=== PATIENT | male | born 1950 | race Two or more races ===

== ENCOUNTER 2017-10-15 20:29 | Inpatient (IN) | payer OTHER ==
[~2017-10-15] VITALS: Ht 167.6 cm; Wt 102.9 kg
[2017-10-15] MEDS ORDERED: IBUPROFEN 600 MG TAB PO ONE (21:00)
[2017-10-15] MEDS ORDERED: ACETAMINOPHEN 500 MG TAB PO ONE (21:00)
[2017-10-15 21:51] LABS: Basophils # (auto) 0.1 uL; Basophils % (auto) 0.4 % (0.0-2.0); Eosinophils # (auto) 0 uL; Eosinophils % (auto) 0.2 % (0.0-7.0); Hematocrit 44.3 % (41.0-53.0); Hemoglobin 15.1 g/dL (13.5-17.5); Lymphocytes # (auto) 0.4 uL; Mean Corpuscular Hemoglobin 30.9 pg (28.0-32.0); Mean Corpuscular Hgb Conc. 34.2 g/dL (32.0-36.0); Mean Corpuscular Volume 90.3 fL (80.0-100.0); Monocytes # (auto) 0.8 uL; Monocytes % (auto) 6.4 % (0.0-12.0); Neutrophils # (auto) 11.8 uL; Platelet Count (auto) 260 10^3/uL (140-450); Red Cell Distribution Width 13.1 % (11.8-14.3); White Blood Cell 13.1 10^3/uL (4.4-10.8)
[2017-10-15 22:08] LABS: Alanine Aminotransferase 23 U/L (16-61); Albumin 3.6 g/dL (3.4-5.0); Anion Gap 8 (5-15); Aspartate Aminotransferase 19 U/L (15-37); Blood Urea Nitrogen 18 mg/dL (7-18); Calcium 8.9 mg/dL (8.5-10.1); Carbon Dioxide 25 mmol/L (21-32); Chloride 103 mmol/L (98-107); GFR African American 66 mL/min; GFR Non-African American 54 mL/min; Glucose 179 mg/dL (74-106); INR 0.96 (0.9-1.15); Partial Thromboplastin Time 24.3 sec (22.64-33.71); Potassium 3.7 mmol/L (3.5-5.1); Prothrombin Time 10.5 sec (9.37-12.3); Sodium 136 mmol/L (136-145)
[2017-10-15 22:13] LABS: Alkaline Phosphatase 82 U/L (45-117); Bilirubin, Total 0.4 mg/dL (0.2-1.0); Total Protein 7.5 g/dL (6.4-8.2)
[2017-10-16] VITALS (7 sets, daily range): BP systolic 129–154; BP diastolic 74–103
[2017-10-16] MEDS ORDERED: SODIUM CHLORIDE 0.9% 1,000 ML IV ONE (01:00)
[2017-10-16 01:25] LABS: Urine Bacteria NONE SEEN /hpf (None Seen); Urine Blood Negative /uL (Negative); Urine Hyaline Cast FEW /lpf (0 - 2); Urine Mucus FEW (None Seen); Urine Specific Gravity 1.025 (1.001-1.035); Urine WBC 14 /hpf (0 - 3)
[2017-10-16] MEDS ORDERED: metroNIDAZOLE 500MG/100ML 100 ML IV ONE (03:30)
[2017-10-16] MEDS ORDERED: cefTRIAXone 1GM/10ml IVPUSH 10 ML IV ONE (03:30)
[2017-10-16] MEDS ORDERED: HYDROcodone-ACET 5/325MG TAB PO PRN (05:30)
[2017-10-16] MEDS ORDERED: ONDANSETRON HCL 4 MG/2 ML VIAL IV PRN (05:30)
[2017-10-16] MEDS ORDERED: SODIUM CHLORIDE 0.9% 1,000 ML IV SCH (05:30)
[2017-10-16 06:33] LABS: Basophils # (auto) 0.2 uL; Basophils % (auto) 1.5 % (0.0-2.0); Eosinophils # (auto) 0.1 uL; Eosinophils % (auto) 0.7 % (0.0-7.0); Hemoglobin 13.6 g/dL (13.5-17.5); Lymphocytes # (auto) 1.3 uL; Mean Corpuscular Hemoglobin 30.3 pg (28.0-32.0); Mean Corpuscular Hgb Conc. 33.1 g/dL (32.0-36.0); Mean Corpuscular Volume 91.3 fL (80.0-100.0); Monocytes # (auto) 0.8 uL; Monocytes % (auto) 6.1 % (0.0-12.0); Neutrophils # (auto) 10.3 uL; Neutrophils % (auto) 81.7 % (37.0-80.0); Platelet Count (auto) 246 10^3/uL (140-450); Red Blood Cells 4.49 10^6/uL (4.5-5.90); Red Cell Distribution Width 13.1 % (11.8-14.3); White Blood Cell 12.6 10^3/uL (4.4-10.8)
[2017-10-16] MEDS: glipiZIDE 5 MG TAB PO SCH (06:45)
[2017-10-16] MEDS ORDERED: MORPHINE SULFATE 4 MG/ML SYR/VIAL IV PRN (06:45)
[2017-10-16] MEDS: buPROPion HCL 75 MG TAB PO SCH ×2 (06:46→18:30)
[2017-10-16 06:57] LABS: BUN/Creatinine Ratio 14.7; Calcium 8.8 mg/dL (8.5-10.1); Potassium 3.8 mmol/L (3.5-5.1)
[2017-10-16] MEDS ORDERED: MET50T PO (08:13)
[2017-10-16] MEDS ORDERED: PRA1C PO (08:13)
[2017-10-16] MEDS ORDERED: GLIP-115 PO (08:13)
[2017-10-16] MEDS ORDERED: CHOL100055 PO (08:13)
[2017-10-16] MEDS ORDERED: LISI2.5T47 PO (08:13)
[2017-10-16] MEDS ORDERED: TAMS0.4C36 PO (08:13)
[2017-10-16] MEDS ORDERED: ASPI-231 PO (08:13)
[2017-10-16] MEDS ORDERED: BUPR1TAB11 PO (08:13)
[2017-10-16] MEDS ORDERED: HYDR12.56 PO (08:13)
[2017-10-16] MEDS: ACETAMINOPHEN 500 MG TAB PO PRN ×2 (08:50→14:52)
[2017-10-16] MEDS: ASPirin-EC 81 mg tab PO SCH (10:05)
[2017-10-16] MEDS: LISINOPRIL 10 MG TAB PO SCH (10:11)
[2017-10-16] MEDS: METOPROLOL TARTRATE 25 MG TAB PO SCH ×2 (10:12→21:41)
[2017-10-16] MEDS: SODIUM CHLORIDE 0.9% 1,000 ML IV SCH (10:45)
[2017-10-16] MEDS: metroNIDAZOLE 500MG/100ML 100 ML IV SCH ×2 (13:37→21:41)
[2017-10-16] MEDS: TAMSULOSIN HYDROCHLORIDE 0.4 MG CAP PO SCH (17:58)
[2017-10-17] VITALS (7 sets, daily range): BP systolic 124–158; BP diastolic 65–80
[2017-10-17] MEDS: PIPERACILLIN-TAZOB 3.375GM 50 ML IV SCH ×4 (00:35→17:41)
[2017-10-17] MEDS: SODIUM CHLORIDE 0.9% 1,000 ML IV SCH (01:53)
[2017-10-17] MEDS: metroNIDAZOLE 500MG/100ML 100 ML IV SCH ×3 (05:15→21:12)
[2017-10-17 06:00] LABS: Basophils # (auto) 0 uL; Basophils % (auto) 0.7 % (0.0-2.0); Eosinophils # (auto) 0 uL; Eosinophils % (auto) 0.2 % (0.0-7.0); Hematocrit 39.8 % (41.0-53.0); Hemoglobin 13.6 g/dL (13.5-17.5); Lymphocytes # (auto) 0.8 uL; Lymphocytes % (auto) 12.6 % (10.0-50.0); Monocytes # (auto) 0.9 uL; Monocytes % (auto) 13.5 % (0.0-12.0); Neutrophils # (auto) 4.6 uL; Nucleated Red Blood Cells % 0.1 %; Platelet Count (auto) 205 10^3/uL (140-450); Red Blood Cells 4.38 10^6/uL (4.5-5.90); Red Cell Distribution Width 13.2 % (11.8-14.3); White Blood Cell 6.4 10^3/uL (4.4-10.8)
[2017-10-17] MEDS: buPROPion HCL 75 MG TAB PO SCH ×2 (06:10→18:39)
[2017-10-17] MEDS: glipiZIDE 5 MG TAB PO SCH (06:11)
[2017-10-17] MEDS ORDERED: cefTRIAXone 1GM/10ml IVPUSH 10 ML IV SCH (09:00)
[2017-10-17] MEDS: ASPirin-EC 81 mg tab PO SCH (09:37)
[2017-10-17] MEDS: METOPROLOL TARTRATE 25 MG TAB PO SCH ×2 (09:39→21:11)
[2017-10-17] MEDS: LISINOPRIL 10 MG TAB PO SCH ×2 (09:40→21:12)
[2017-10-17] MEDS: TAMSULOSIN HYDROCHLORIDE 0.4 MG CAP PO SCH (17:41)
[2017-10-18 05:04] VITALS: BP 118/75
[2017-10-18] MEDS: metroNIDAZOLE 500MG/100ML 100 ML IV SCH ×2 (05:10→14:20)
[2017-10-18 05:55] LABS: Basophils # (auto) 0.1 uL; Eosinophils # (auto) 0.1 uL; Eosinophils % (auto) 1.5 % (0.0-7.0); Hemoglobin 13.7 g/dL (13.5-17.5); Lymphocytes # (auto) 1.5 uL; Lymphocytes % (auto) 24.7 % (10.0-50.0); Mean Corpuscular Hemoglobin 30.6 pg (28.0-32.0); Mean Corpuscular Hgb Conc. 33.3 g/dL (32.0-36.0); Mean Corpuscular Volume 91.7 fL (80.0-100.0); Monocytes % (auto) 16.5 % (0.0-12.0); Neutrophils # (auto) 3.3 uL; Neutrophils % (auto) 56.3 % (37.0-80.0); Nucleated Red Blood Cells % 0.1 %; Platelet Count (auto) 200 10^3/uL (140-450); Red Blood Cells 4.47 10^6/uL (4.5-5.90); Red Cell Distribution Width 13.5 % (11.8-14.3); White Blood Cell 5.9 10^3/uL (4.4-10.8)
[2017-10-18] MEDS: PIPERACILLIN-TAZOB 3.375GM 50 ML IV SCH ×3 (06:10→12:13)
[2017-10-18] MEDS: glipiZIDE 5 MG TAB PO SCH (06:11)
[2017-10-18] MEDS: buPROPion HCL 75 MG TAB PO SCH (06:11)
[2017-10-18 09:00] VITALS: BP 146/77
[2017-10-18] MEDS: METOPROLOL TARTRATE 25 MG TAB PO SCH (09:36)
[2017-10-18] MEDS: ASPirin-EC 81 mg tab PO SCH (09:36)
[2017-10-18] MEDS: LISINOPRIL 10 MG TAB PO SCH (09:37)
[2017-10-18 13:00] VITALS: BP 130/76
[2017-10-18] MEDS ORDERED: CEPH-37 PO (13:32)
[2017-10-18] MEDS ORDERED: SACC1CAP3 PO (13:32)
== END 2017-10-18 16:30 | disposition home or self-care (01) | DRG 690 ==
LOC: ER 20:29 → OVERFLOW 20:30 → WEST WING 10-16 06:28
PROVIDERS: ADMIT Nurse Practitioner Family; ATTEND Hospitalist
DX: N39.0 Urinary tract infection, site not specified (principal); R65.10 Systemic inflammatory response syndrome (SIRS) of non-infectious origin without acute organ dysfunction; B96.20 Unspecified Escherichia coli [E. coli] as the cause of diseases classified elsewhere; E11.9 Type 2 diabetes mellitus without complications; E66.9 Obesity, unspecified; F41.9 Anxiety disorder, unspecified; K57.30 Diverticulosis of large intestine without perforation or abscess without bleeding; I10 Essential (primary) hypertension; N40.0 Benign prostatic hyperplasia without lower urinary tract symptoms; Z96.653 Presence of artificial knee joint, bilateral; Z68.36 Body mass index [BMI] 36.0-36.9, adult
CPT/HCPCS: 36415; 71045; 74176; 80048; 80053; 81001; 82962; 83036; 83605; 83880; 84484; 85025; 85610; 85652; 85730; 86141; 87040; 87077; 87186; 93005; 96361; 96365; 96375; J2543; J3490